=== PATIENT | female | born 1985 | race Native Hawaiian/Other Pacific Islander ===

== ENCOUNTER 2017-08-26 19:51 | Outpatient (CLI) | payer BC, OTHER | END 2017-08-26 20:09 | disposition short-term general hospital (02) | LOC: AMB 19:51 | DX: M79.652 Pain in left thigh (principal); M25.552 Pain in left hip; M25.562 Pain in left knee; V03.10XA Pedestrian on foot injured in collision with car, pick-up truck or van in traffic accident, initial encounter; Y92.488 Other paved roadways as the place of occurrence of the external cause | CPT/HCPCS: A0425; A0427 ==

== ENCOUNTER 2017-08-26 20:12 | Emergency (ER) | payer BC, OTHER ==
[~2017-08-26] VITALS: Ht 165.1 cm; Wt 61.2 kg
== END 2017-08-26 22:17 | disposition home or self-care (01) ==
LOC: ED 20:12
DX: S16.1XXA Strain of muscle, fascia and tendon at neck level, initial encounter (principal); S70.02XA Contusion of left hip, initial encounter; S70.12XA Contusion of left thigh, initial encounter; S80.02XA Contusion of left knee, initial encounter; V49.60XA Unspecified car occupant injured in collision with unspecified motor vehicles in traffic accident, initial encounter
CPT/HCPCS: 81000; 81025; 99283